=== PATIENT | male | born 1970 | race African-American/Black ===

== ENCOUNTER 2017-11-13 17:10 | Emergency (ER) | payer MEDICAID ==
[~2017-11-13] VITALS: Ht 180.3 cm; Wt 89.0 kg
[2017-11-13 17:14] VITALS: BP 141/62
== END 2017-11-13 18:15 | disposition home or self-care (01) ==
LOC: ER 18:13
DX: R07.89 Other chest pain (principal); I10 Essential (primary) hypertension; F32.9 Major depressive disorder, single episode, unspecified; Z88.3 Allergy status to other anti-infective agents; Z88.2 Allergy status to sulfonamides
CPT/HCPCS: 99283